=== PATIENT | male | born 1955 | race Caucasian/White ===

== ENCOUNTER 2016-12-06 19:34 | Emergency (ER) | payer MEDICARE ==
[~2016-12-06 19:34] MED LIST: CYMBALTA60 MG; METOCLOPRAMIDE10 MG; XANAX0.25 MG
[2016-12-06] MEDS ORDERED: GLUCOPHAGE XR500 M1 PO (19:50)
[2016-12-06] MEDS ORDERED: CELEXA20 M2 PO (19:51)
[2016-12-06] MEDS ORDERED: GLUCOTROL10 M1 PO (19:51)
[2016-12-06] MEDS ORDERED: ACTOS30 M1 PO (19:52)
[2016-12-06] MEDS ORDERED: DEPAKOTE500 M1 (19:52)
[2016-12-06] MEDS ORDERED: VALIUM5 M1 PO (19:52)
[2016-12-06] MEDS ORDERED: NORCO 5-325 TA1 EACH PO (21:14)
== END 2016-12-06 22:05 ==
LOC: EDMED 19:34
DX: S06.0X9A Concussion with loss of consciousness of unspecified duration, initial encounter (principal); R07.89 Other chest pain; W17.89XA Other fall from one level to another, initial encounter; Y92.69 Other specified industrial and construction area as the place of occurrence of the external cause; Y99.0 Civilian activity done for income or pay